=== PATIENT | male | born 1970 | race Caucasian/White ===

== ENCOUNTER 2018-12-03 14:11 | Emergency (ER) | payer SELFPAY ==
[~2018-12-03] VITALS: Ht 172.7 cm; Wt 87.5 kg
[2018-12-03] MEDS ORDERED: IPRATRPIUM/ALBUTEROL 0.5/2.5MG 3 ML NEBU. NEB ONE (15:00)
[2018-12-03 15:08] VITALS: BP 134/56
[2018-12-03 15:18] LABS: AMPHETAMINE/METHAMPHETAMINE NEG (NEG); BARBITURATES NEG (NEG); BENZODIAZEPINES NEG (NEG); CANNABINOIDS NEG (NEG); COCAINE NEG (NEG); METHADONE NEG (NEG); OPIATES NEG (NEG); PHENCYCLIDINE NEG (NEG)
[2018-12-03 15:22] LABS: ALBUMIN 2.4 g/dL (3.4-5.0); ALBUMIN/GLOBULIN RATIO 0.5 (1.0-1.7); CALCIUM 7.9 mg/dL (8.5-10.1); CREATININE 0.9 mg/dL (0.7-1.3); GFR 90.4; TOTAL BILIRUBIN 1.7 mg/dL (0.2-1.0)
--- NOTE | 2018-12-03 15:22 | PHYS DOC ---
Past History Past Medical History: Bipolar, Hypertension, Liver Disease Additional Past Medical Histor: Fell about two months ago and unsure what caused it. (Questionable seizure) Past Surgical History: No Surgical History Smoking: Cigarettes, Less than 1pk/day Alcohol Use: Occasionally Additional Alcohol Information: Pt stated I used to drink very heavy and I am slowing it down. Drug Use: Marijuana Adult General Chief Complaint Chief Complaint: SHORTNESS OF BREATH HPI HPI Patient is a 48 year old male history of bipolar disorder, hepatitis C, alcohol use or disease and cirrhosis and ascites who presents with complaining of shortness of breath. Patient complaining of progressive shortness of breath for the last 3 weeks as a constant problem without cough and chest pain. Patient states he had ascites since June but did not seek medical attention because of lack of insurance. Patient states he used to drink alcohol heavily but recently drinks once a week. Patient states he had a fever of 101 last night and complaining of epigastric pain as a chronic pain and rated his pain 8/10. Patient denies diarrhea and constipation, urinary problems, focal neuro deficit. Patient did not have any treatment for cirrhosis or history of paracentesis. Review of Systems Review of Systems Constitutional: Denies fever or chills [] Eyes: Denies change in visual acuity, redness, or eye pain [] HENT: Denies nasal congestion or sore throat [] Respiratory: Denies cough, reports shortness of breath [] Cardiovascular: No additional information not addressed in HPI [] GI: Reports abdominal pain, denies nausea, vomiting, bloody stools or diarrhea [] : Denies dysuria or hematuria [] Musculoskeletal: Denies back pain or joint pain [] Integument: Denies rash or skin lesions [] Neurologic: Denies headache, focal weakness or sensory changes [] Endocrine: Denies polyuria or polydipsia [] All other systems were reviewed and found to be within normal limits, except as documented in this note. Current Medications Current Medications Current Medications Medications (Trade) Dose Ordered Sig/Rosalie Start Time Stop Time Status Last Admin Dose Admin Albuterol/ Ipratropium (Duoneb) 3 ml 1X ONCE 12/03/18 15:00 12/03/18 15:01 DC Allergies Allergies Allergies Coded Allergies Type Severity Reaction Last Updated Verified Penicillins Allergy Intermediate Hives 12/03/18 Yes Physical Exam Physical Exam Constitutional: Malnutrition, thin,pale, mild distress, non-toxic appearance. [] HENT: Normocephalic, atraumatic Eyes: PERRLA, EOMI, conjunctiva normal, no discharge, jaundice. [] Neck: Normal range of motion, no tenderness, supple, no stridor. [] Cardiovascular:Heart rate regular rhythm, no murmur [] Lungs & Thorax: Bilateral breath sounds clear to auscultation [] Abdomen: Very large ascites without tenderness, bowel sounds normal, soft, no tenderness. Skin: Warm, dry, no erythema, no rash. [] Back: No tenderness, no CVA tenderness. [] Extremities: No tenderness, no cyanosis, no clubbing, ROM intact, bilateral lower extremity edema . Neurologic: Alert and oriented X 3, normal motor function, normal sensory function, no focal deficits noted. [] Current Patient Data Vital Signs Vital Signs Date Time Temp Pulse Resp B/P (MAP) Pulse Ox O2 Delivery O2 Flow Rate FiO2 12/03/18 14:26 98.4 97 18 97 Room Air Lab Results Laboratory Tests Test 12/03/18 14:54 Urine Opiates Screen Neg (NEG) Urine Methadone Screen Neg (NEG) Urine Barbiturates Neg (NEG) Urine Phencyclidine Screen Neg (NEG) Urine Amphetamine/Methamphetamine Neg (NEG) Urine Benzodiazepines Screen Neg (NEG) Urine Cocaine Screen Neg (NEG) Urine Cannabinoids Screen Neg (NEG) Urine Ethyl Alcohol Neg (NEG) EKG EKG EKG interpreted by me. EKG at 1500 showed normal sinus rhythm at rate of 89, normal PA intervals, T-wave abnormalities in lateral leads, prolonged QT no acute ST and T-wave abnormalities. Radiology/Procedures Radiology/Procedures [address] [address] IMAGING REPORT Signed PATIENT: JEET ANTUNEZ ACCOUNT: [id number] : 1970 LOCATION: ER AGE: 48 SEX: M EXAM STATUS: REG ER ORD. PHYSICIAN: EVELIO LITTLEJOHN MD REASON: shortness of breath PROCEDURE: CT ABDOMEN PELVIS WO CONTRAST PQRS Compliance Statement: One or more of the following individualized dose reduction techniques were utilized for this examination: 1. Automated exposure control 2. Adjustment of the mA and/or kV according to patient size 3. Use of iterative reconstruction technique CT ABDOMEN PELVIS WO CONTRAST Clinical Indication: Shortness of breath. Comparison: CT abdomen and pelvis without contrast October 14, 2011. Technique: Helical CT imaging of the abdomen and pelvis is performed without IV or oral contrast. Findings: Evaluation of solid organs and bowel is limited without oral and IV contrast, decreasing sensitivity for detection of pathology. The margins of the abdomen extend to the edge of the [id number]. Lung bases are clear. Cardiac size is normal. Interventricular septum is well seen, correlate for anemia. Cirrhotic liver. Gallbladder is contracted. Spleen size upper limits of normal. Pancreas homogeneous. Adrenal glands normal. No hydronephrosis. 3 mm nonobstructing left renal calculus. There is marked abdominal and pelvic ascites. Stomach unremarkable. No small bowel obstruction. No definite colon wall thickening. Appendix is not identified, no secondary signs of appendicitis. There is induration throughout the mesentery. No obvious adenopathy. Urinary bladder is normal. Prostate incompletely imaged. There is old compression fracture of the T9 vertebral body. IMPRESSION: 1. Marked abdominal and pelvic ascites. 2. Cirrhosis. 3. Borderline splenomegaly. 4. Tiny nonobstructing left renal calculus. Electronically signed by: Mook Mccarthy MD (12/03/2018 3:25 PM) [id number] DICTATED AND SIGNED BY: MOOK MCCARTHY MD DATE: 12/03/18 1525 CC: JUVENCIO RUSHING MD; EVELIO LITTLEJOHN MD ~ [address] [address] IMAGING REPORT Signed PATIENT: JEET ANTUNEZ ACCOUNT: [id number] : 1970 LOCATION: ER AGE: 48 SEX: M EXAM STATUS: REG ER ORD. PHYSICIAN: EVELIO LITTLEJOHN MD REASON: shortness of breath PROCEDURE: CHEST PA & LATERAL CHEST PA LATERAL History: Shortness of breath. Comparison: CT abdomen and pelvis December 03, 2018. Findings: No consolidation or pleural effusion. Normal heart size. Lower thoracic chronic appearing vertebral body compression fractures. Impression: 1. No acute cardiopulmonary process. 2. Lower thoracic chronic appearing vertebral body compression fractures. Electronically signed by: Ham De Los Santos DO (12/03/2018 3:24 PM) [id number] DICTATED AND SIGNED BY: HAM DE LOS SANTOS DO DATE: 12/03/18 1524 CC: JUVENCIO RUSHING MD; EVELIO LITTLEJOHN MD ~ Course & Med Decision Making Course & Med Decision Making Pertinent Labs and Imaging studies reviewed. (See chart for details) The patient in ER showed 48-year-old male patient with advanced cirrhosis and ascites presented with complaining of shortness of breath. Patient was pale and had hemoglobin of 4.9 as a chronic anemia without complaining of chest pain or dizziness or palpitation. Patient had a stable vital signs. Because of lack of GI specialist and interventional radiologist patient was transferred to [facility]. Dr. Dallas accepted transfer at 1505 and was informed at 1626 about the lab results. Dragon Disclaimer Dragon Disclaimer This electronic medical record was generated, in whole or in part, using a voice recognition dictation system. Departure Departure: Impression: Primary Impression: Alcoholic cirrhosis of liver with ascites Additional Impressions: Dyspnea Thoracic compression fracture Severe anemia Hypokalemia Dilutional hyponatremia Hypoalbuminemia Elevated INR Disposition: XFER SHT-TRM HOSP ([facility] at 1506) Condition: STABLE Referrals: JUVENCIO RUSHING MD (PCP) Critical Care Time Critical care time was 60 minutes exclusive of procedures. Problem Qualifiers Additional Impressions: Dyspnea Dyspnea type: unspecified Qualified Codes: R06.00 - Dyspnea, unspecified Thoracic compression fracture Encounter type: sequela Thoracic vertebra fracture level: unspecified thoracic vertebra Qualified Codes: S22.000S - Wedge compression fracture of unspecified thoracic vertebra, sequela EVELIO LITTLEJOHN MD Dec 03, 2018 15:22
[2018-12-03 15:24] LABS: CLARITY,URINE HAZY; GLUCOSE,URINE NEG (NEG)
[2018-12-03 15:25] LABS: BACTERIA,URINE 0 /HPF (0-FEW); BILIRUBIN,URINE NEG (NEG); NITRITE,URINE NEG (NEG); SQUAMOUS EPITHELIAL CELL,UR OCC /LPF; UROBILINOGEN,URINE 0.2 mg/dL (0.2 mg/dL)
--- NOTE | 2018-12-03 15:27 | RAD ---
CHEST PA LATERAL History: Shortness of breath. Comparison: CT abdomen and pelvis December 03, 2018. Findings: No consolidation or pleural effusion. Normal heart size. Lower thoracic chronic appearing vertebral body compression fractures. Impression: 1. No acute cardiopulmonary process. 2. Lower thoracic chronic appearing vertebral body compression fractures. Electronically signed by: Ham De Los Santos DO (12/03/2018 3:24 PM) [id number]
[2018-12-03 15:28] LABS: COLOR,URINE YELLOW
--- NOTE | 2018-12-03 15:28 | RAD ---
PQRS Compliance Statement: One or more of the following individualized dose reduction techniques were utilized for this examination: 1. Automated exposure control 2. Adjustment of the mA and/or kV according to patient size 3. Use of iterative reconstruction technique CT ABDOMEN PELVIS WO CONTRAST Clinical Indication: Shortness of breath. Comparison: CT abdomen and pelvis without contrast October 14, 2011. Technique: Helical CT imaging of the abdomen and pelvis is performed without IV or oral contrast. Findings: Evaluation of solid organs and bowel is limited without oral and IV contrast, decreasing sensitivity for detection of pathology. The margins of the abdomen extend to the edge of the [id number]. Lung bases are clear. Cardiac size is normal. Interventricular septum is well seen, correlate for anemia. Cirrhotic liver. Gallbladder is contracted. Spleen size upper limits of normal. Pancreas homogeneous. Adrenal glands normal. No hydronephrosis. 3 mm nonobstructing left renal calculus. There is marked abdominal and pelvic ascites. Stomach unremarkable. No small bowel obstruction. No definite colon wall thickening. Appendix is not identified, no secondary signs of appendicitis. There is induration throughout the mesentery. No obvious adenopathy. Urinary bladder is normal. Prostate incompletely imaged. There is old compression fracture of the T9 vertebral body. IMPRESSION: 1. Marked abdominal and pelvic ascites. 2. Cirrhosis. 3. Borderline splenomegaly. 4. Tiny nonobstructing left renal calculus. Electronically signed by: Mook Mccarthy MD (12/03/2018 3:25 PM) [id number]
[2018-12-03 15:59] LABS: BASO % 0 % (0-3); EOS # 0.1 x10^3/uL (0.0-0.7); EOS % 1 % (0-3); LYMPH # 0.8 x10^3/uL (1.0-4.8); LYMPH % 10 % (24-48); MEAN CORPUSCULAR HEMOGLOBIN 26 pg (25-35); MEAN CORPUSCULAR HGB CONC 32 g/dL (31-37); MEAN CORPUSCULAR VOLUME 82 fL (79-100); MONO # 0.8 x10^3/uL (0.0-1.1); MONO % 10 % (0-9); NEUT # 6.3 x10^3uL (1.8-7.7); NEUT % 79 % (31-73); PLATELET COUNT 148 x10^3/uL (140-400); RED BLOOD COUNT 1.89 x10^6/uL (4.30-5.70); RED CELL DISTRIBUTION WIDTH 21.7 % (11.5-14.5); WHITE BLOOD COUNT 7.9 x10^3/uL (4.0-11.0)
[2018-12-03 16:00] LABS: POTASSIUM 2.9 mmol/L (3.5-5.1)
[2018-12-03 16:01] LABS: HEMATOCRIT 15.4 % (39.0-53.0)
[2018-12-03 16:02] LABS: HEMOGLOBIN 4.9 g/dL (13.0-17.5)
[2018-12-03] MEDS ORDERED: POTASSIUM CHLORIDE 20 MEQ TABLET.ER. PO ONE (16:15)
[2018-12-03 21:57] LABS: ANISOCYTOSIS MOD; PLT ESTIMATE ADEQUATE (ADEQUATE)
[2018-12-03 21:58] LABS: OVALOCYTES OCC; POLYCHROMASIA SLIGHT
--- NOTE | 2018-12-05 11:06 | EKG ---
[address] [address] Test Date: 2018-12-03 Test Time: 15:00:21 Pat Name: JEET ANTUNEZ Department: Room: Gender: M [employer]: : 1970 Requested By: EVELIO LITTLEJOHN Order Number: [id number] Reading MD: Measurements Intervals [place] Rate: 89 P: 66 SD: 128 QRS: 18 QRSD: 98 T: 39 QT: 386 QTc: 471 Interpretive Statements SINUS RHYTHM T ABNORMALITY IN ANTEROLATERAL LEADS PROLONGED QT ABNORMAL ECG RI6.01 No previous ECG available for comparison
== END 2018-12-03 16:20 | disposition short-term general hospital (02) ==
LOC: ER 14:11
DX: K70.31 Alcoholic cirrhosis of liver with ascites (principal); M84.48XA Pathological fracture, other site, initial encounter for fracture; D64.9 Anemia, unspecified; E87.6 Hypokalemia; E87.1 Hypo-osmolality and hyponatremia; E88.09 Other disorders of plasma-protein metabolism, not elsewhere classified; R79.89 Other specified abnormal findings of blood chemistry; R06.00 Dyspnea, unspecified; F17.210 Nicotine dependence, cigarettes, uncomplicated; I10 Essential (primary) hypertension; F31.9 Bipolar disorder, unspecified; Z88.0 Allergy status to penicillin
CPT/HCPCS: 36415; 71046; 74176; 80053; 80307; 81001; 82550; 83690; 84484; 85025; 85610; 85730; 93005; 94640; 99291; G0480; J7620; 99281